=== PATIENT | male | born 1945 | race Caucasian/White ===

== ENCOUNTER 2022-09-03 08:58 | Day surgery (SDC) | payer OTHER ==
[~2022-09-03] VITALS: Ht 182.9 cm; Wt 86.6 kg
[2022-09-03] MEDS ORDERED: LIDOCAINE 2% 100 MG/5 ML UJET TP ONE ×2 (10:29→11:03)
[2022-09-03] MEDS ORDERED: fentaNYL citrate 0.05 MG/ML VIAL ONE ×2 (10:29→11:01)
[2022-09-03] MEDS ORDERED: MIDAZOLAM 5 MG/5 ML VIAL ONE (11:02)
== END 2022-09-03 12:06 | disposition home or self-care (01) ==
LOC: MDS 08:58 → MMU 08:59 → MDS 12:06
PROVIDERS: ATTEND Internal Medicine Gastroenterology
DX: Z12.11 Encounter for screening for malignant neoplasm of colon (principal); E78.5 Hyperlipidemia, unspecified; Z79.01 Long term (current) use of anticoagulants; Z87.891 Personal history of nicotine dependence
CPT/HCPCS: 45378; J3010; J2250